=== PATIENT | female | born 1985 | race Caucasian/White ===

== ENCOUNTER → 2016-06-01 | Outpatient (CLI) | payer MEDICAID ==
--- NOTE | 2016-06-01 17:21 | DI ---
Indication: ITS.REASON: M54.16 RADICULOPATHY, lumbar, history of low back pain PROCEDURE: MRI LUMBAR SPINE W/O CONTRAST: Encounter: Initial Comparison: None Technique: Multiplanar multisequence MR imaging of the lumbar spine was performed without contrast. Findings: Alignment of the lumbar spine is within normal limits. No acute fracture or subluxation. Bone marrow signal intensity is normal. Conus medullaris terminates normally at L1. The paraspinal soft tissues are within normal limits. Segmental analysis: L1-L2: Normal L2-L3: Normal L3-L4: Disk desiccation with bulging and a small high intensity zone centrally results in mild central canal narrowing and slight effacement of the thecal sac. Mild degenerative facet change contributes to mild left neural foraminal narrowing. No significant right foraminal stenosis. L4-L5: Normal L5-S1: Normal Impression: Annular disk tear at L3-L4 with bulging, mild central canal and left neural foraminal narrowing. .
--- NOTE | 2016-06-01 17:24 | DI ---
Indication: ITS.REASON: M54.12 RADICULOPATHY, CERVICAL REGION; neck pain with painful range of motion PROCEDURE: MRI CERVICAL SPINE W/O CONTRAS: Encounter: Initial Comparison: None Technique: Multiplanar multisequence MR imaging of the cervical spine was performed without contrast. Findings: Alignment of the cervical spine is within normal limits. Vertebral body heights are maintained. Bone marrow signal intensity is normal. No acute fracture. The cervical and visualized upper thoracic spinal cord signal intensity is normal. Paraspinal soft tissues are unremarkable. Segmental analysis: C2-C3: Normal C3-C4: Normal C4-C5: Normal C5-C6: Normal C6-C7: Left central disk protrusion effacing the left aspect of the thecal sac without true central canal stenosis. This also results in moderate left neural foraminal stenosis. No right foraminal narrowing. C7-T1: Normal Impression: Left-sided disk protrusion at C6-C7. .
== END ==
LOC: IMA 08:59
PROVIDERS: ATTEND Family Medicine
DX: M50.122 Cervical disc disorder at C5-C6 level with radiculopathy (principal); M47.26 Other spondylosis with radiculopathy, lumbar region; M51.16 Intervertebral disc disorders with radiculopathy, lumbar region

== ENCOUNTER 2016-07-08 12:41 | Emergency (ER) | payer MEDICAID ==
[~2016-07-08] VITALS: Ht 170.2 cm; Wt 76.0 kg
[2016-07-08 12:45] VITALS: Ht 170.2 cm; Wt 76.0 kg
--- OUTSIDE RECORDS SUMMARY | 2016-07-08 12:46 | XMS REPORT ---
Author Author Katheirne Rinaldi Organization e[employer] Address Unknown Phone Unavailable Care Team Providers Care Deck Mechanic Name Role Phone Katherine Rinaldi CP Unavailable Allergies No Known Allergies Problems Problem Type Condition Code Onset Dates Condition Status Problem Other muscle spasm M62.838 Active Problem Unspecified tachycardia 785.0 Active Problem Low back pain M54.5 Active Assessment Low back pain M54.5 Active Assessment Other muscle spasm M62.838 Active Medications No Known Medications Results No Known Results Summary Purpose eClinicalWorks Submission
--- OUTSIDE RECORDS SUMMARY | 2016-07-08 12:46 | XMS REPORT | Referral Summary ---
Author Author [facility] Organization [facility] Address Unknown Phone Unavailable Care Team Providers Care Peoplesoft Taleo Manager Name Role Phone [facility] Primary Care Physician Unavailable Encounter [facility] [id number] Date(s): 10/17/15 - 10/17/15 [facility] [address], [place] [address] Discharge Diagnosis: Lumbar disc herniation Discharge Diagnosis: Lumbar radiculopathy Discharge Diagnosis: Lumbar spinal stenosis Discharge Disposition: 01-Home or Self Care Attending Physician: Aries Gao MD Admitting Physician: Aries Gao MD Referring Physician: [facility] Vital Signs Most recent to 1 oldest [Reference Range]: Apical Heart Rate 56 bpm [60-100 bpm] *LOW* (10/17/15 9:51 AM) Respiratory Rate 16 br/min [14-20 br/min] (10/17/15 9:51 AM) Blood Pressure 114/71 mmHg [90-140/60-90 mmHg] (10/17/15 9:51 AM) SpO2 100 % (10/17/15 9:51 AM) Problem List Condition Effective Dates Status Health Status Informant Disc degeneration, Active lumbar(Confirmed) Lumbar Active radiculopathy(Confir med) Lumbar disc Active herniation(Confirmed ) Lumbar spinal Active stenosis(Confirmed) Allergies, Adverse Reactions, Alerts No Known Medication Allergies Medications baclofen 10 mg oral tablet 10 mg 1 tabs, Oral, TID, 0 Refill(s) Start Date: 02/16/15 Status: Ordered meloxicam 15 mg oral tablet 15 mg 1 tabs, Oral, Daily, 0 Refill(s) Start Date: 02/16/15 Status: Ordered Results No data available for this section Immunizations No data available for this section Procedures Procedure Date Related Diagnosis Body Site Injection(s), anesthetic agent and/or 10/17/15 steroid, transforaminal epidural, with imaging guidance (fluoroscopy or CT); lumbar or sacral, single level Bilateral L3-4 Transforaminal 06/09/15 Bilateral L3-4 Transforaminal 03/03/15 Left Ankle Surgery-Screw placed 1998 Social History No data available for this section Assessment and Plan Extracted from: Title: Ambulatory Patient Education Author: Pamella Chow RN Date: 10/17/15 Procedures Epidural Steroid Injection An epidural steroid injection is given to relieve pain in your neck, back, or legs that is caused by the irritation or swelling of a nerve root. This procedure involves injecting a steroid and numbing medicine (anesthetic) into the epidural space. The epidural space is the space between the outer covering of your spinal cord and the bones that form your backbone (vertebra). LET YOUR HEALTH CARE PROVIDER KNOW ABOUT: Any allergies you have. All medicines you are taking, including vitamins, herbs, eye drops, creams, and yhgr-ijf-izgmurj medicines such as aspirin. Previous problems you or members of your family have had with the use of anesthetics. Any blood disorders or blood clotting disorders you have. Previous surgeries you have had. Medical conditions you have. RISKS AND COMPLICATIONS Generally, this is a safe procedure. However, as with any procedure, complications can occur. Possible complications of epidural steroid injection include: Headache. Bleeding. Infection. Allergic reaction to the medicines. Damage to your nerves. The response to this procedure depends on the underlying cause of the pain and its duration. People who have long-term (chronic) pain are less likely to benefit from epidural steroids than are those people whose pain comes on strong and suddenly. BEFORE THE PROCEDURE Ask your health care provider about changing or stopping your regular medicines. You may be advised to stop taking blood-thinning medicines a few days before the procedure. You may be given medicines to reduce anxiety. Arrange for someone to take you home after the procedure. PROCEDURE You will remain awake during the procedure. You may receive medicine to make you relaxed. You will be asked to lie on your stomach. The injection site will be cleaned. The injection site will be numbed with a medicine (local anesthetic). A needle will be injected through your skin into the epidural space. Your health care provider will use an X-ray machine to ensure that the steroid is delivered closest to the affected nerve. You may have minimal discomfort at this time. Once the needle is in the right position, the local anesthetic and the steroid will be injected into the epidural space. The needle will then be removed and a bandage will be applied to the injection site. AFTER THE PROCEDURE You may be monitored for a short time before you go home. You may feel weakness or numbness in your arm or leg, which disappears within hours. You may be allowed to eat, drink, and take your regular medicine. You may have soreness at the site of the injection. This information is not intended to replace advice given to you by your health care provider. Make sure you discuss any questions you have with your health care provider. Document Released: 06/10/2008 Document Revised: 11/04/2013 Document Reviewed: Exit[employer] Patient Information 2016 [employer], [email or web address]. No follow up information was provided.
--- OUTSIDE RECORDS SUMMARY | 2016-07-08 12:46 | XMS REPORT | Referral Summary ---
Author Author [facility] Organization [facility] Address Unknown Phone Unavailable Care Team Providers Care Center Lead Consultant Name Role Phone [facility] Primary Care Physician Unavailable Encounter [facility] [id number] Date(s): 02/16/15 - 02/16/15 [facility] [address], [place] [address] Discharge Diagnosis: Disc degeneration, lumbar Discharge Diagnosis: Lumbar spinal stenosis Discharge Diagnosis: Lumbar radiculopathy Discharge Diagnosis: Lumbar disc herniation Discharge Disposition: 01-Home or Self Care Attending Physician: Valentino Hubbard Admitting Physician: Valentino Hubbard Referring Physician: [facility] Vital Signs Most recent to 1 oldest [Reference Range]: Blood Pressure 114/72 mmHg [90-140/60-90 mmHg] (02/16/15 1:57 PM) Problem List Condition Effective Dates Status Health [...] Procedures Procedure Date Related Diagnosis Body Site Left Ankle Surgery-Screw placed 1998 Social History No data available for this section Assessment and Plan Extracted from: Title: Office Visit Note Author: Valentino Hubbard Date: 02/16/15 Assessment/Plan Disc degeneration, lumbar Lumbar disc herniation Lumbar radiculopathy Lumbar spinal stenosis I discussed the patient's plan of care with Dr. Gao. I also reviewed the patient's most recent lumbar MRI with the patient using a spinal model. I've also reviewed the films with the patient. Dr. Gao also reviewed this MRI. According to this MRI the patient has findings of advanced degenerative disc at the L3 4 levelwith a mild degree of central stenosis with some mild bilateral L3 foraminal stenosis. There is also small foraminal component of a disc herniation on the left with an annular tear. Clinically she appears to have discogenic pain lumbar radiculopathy from the L3 4 level bilaterally left greater than right. She has attended fairly extensive physical therapy. She' s been on anti-inflammatories muscle relaxers. Dr. Gao recommends proceeding witha bilateral L3 4 transforaminal epidural steroid injection. The patient does understand the rationale for the procedure as well as possible complications including bleeding, infection, allergic reaction, nerve irritation or damage, and risk of spinal headache. The patient also understands other remote possible complications including paraplegia, quadriplegia, , stroke, embolus,and seizure. The patient voiced understanding and wishes to proceed.The patient requests a local anesthetic. The patient will follow-up in 2 months following the injection. If the patient fails to improve or worsening symptoms, shewill follow-up sooner. We discussed surgery is generally last resort. She has no myelopathic signs today. She'll continue home exercise and stretching. Activity modification was also discussed with her. The patient voiced understanding and agrees to the above plan. Physical exam findings, history present illness, and recommendations are performed with and in agreement with Dr. Gao's findings.
--- OUTSIDE RECORDS SUMMARY | 2016-07-08 12:46 | XMS REPORT | Referral Summary ---
Author Author [facility] Organization [facility] Address Unknown Phone Unavailable Care Team Providers Care Rod Drawer Name Role Phone [facility] Primary Care Physician Unavailable Encounter [facility] [id number] Date(s): 06/09/15 - 06/09/15 [facility] [address], [place] [address] Discharge Diagnosis: Lumbar spinal stenosis Discharge Diagnosis: Lumbar disc herniation Discharge Diagnosis: Lumbar radiculopathy Discharge Disposition: 01-Home or Self Care Attending Physician: Aries Gao MD Admitting Physician: Aries Gao MD Referring Physician: [facility] Vital Signs Most recent to 1 oldest [Reference Range]: Peripheral Pulse 69 bpm Rate [60-100 bpm] (06/09/15 1:48 PM) Respiratory Rate 12 br/min [14-20 br/min] *LOW* (06/09/15 1:48 PM) Blood Pressure 126/83 mmHg [90-140/60-90 mmHg] (06/09/15 1:48 PM) SpO2 100 % (06/09/15 1:48 PM) Problem List Condition Effective Dates Status [...] Procedures Procedure Date Related Diagnosis Body Site Bilateral L3-4 Transforaminal 06/09/15 Injection(s), anesthetic agent and/or 06/09/15 steroid, transforaminal epidural, with imaging guidance (fluoroscopy or CT); lumbar or sacral, single level Bilateral L3-4 Transforaminal 03/03/15 Left Ankle Surgery-Screw placed 1998 Social History No data available for this section Assessment and Plan No data available for this section
--- OUTSIDE RECORDS SUMMARY | 2016-07-08 12:46 | XMS REPORT ---
Author Author Katherine Rinaldi Organization [employer]ClinicalWorks Address Unknown Phone Unavailable Care Team Providers Care Photographic Editor Name Role Phone Katherine Rinaldi CP Unavailable Allergies No Known Allergies Problems Problem Type Condition Code Onset Dates Condition Status Problem Other muscle spasm M62.838 Active Problem Unspecified tachycardia 785.0 Active Problem Low back pain M54.5 Active Assessment Other muscle spasm M62.838 Active Medications Medication Code System Code Instructions Start Date End Date Status Dosage Electrotherapy Pain Relief [facility] [id number] Please provide replacement patches (electrodes, tac gel, lead wires) for TENS unit. Thank you! Jan 17, 2015 as directed Results No Known Results Summary Purpose eClinicalWorks Submission
--- OUTSIDE RECORDS SUMMARY | 2016-07-08 12:46 | XMS REPORT ---
Author Author Katherine Rinaldi Organization [employer] Address Unknown Phone Unavailable Care Team Providers Care Carpenter Packing Name Role Phone Katherine Rinaldi CP Unavailable Allergies No Known Allergies Problems Problem Type Condition Code Onset Dates Condition Status Problem Other specified irregular menstruation N92.5 Active Problem Low back pain M54.5 Active Problem Personal history of urinary (tract) infections Z87.440 Active Assessment Other specified abnormal findings of blood chemistry R79.89 Active Problem Other muscle spasm M62.838 Active Problem Unspecified tachycardia 785.0 Active Medications No Known Medications Results No Known Results Summary Purpose eClinicalWorks Submission
--- OUTSIDE RECORDS SUMMARY | 2016-07-08 12:46 | XMS REPORT ---
Author Author Katherine Rinaldi Organization [employer] Address Unknown Phone Unavailable Care Team Providers Care Varnish Dipper Name Role Phone Katherine Rinaldi CP Unavailable Allergies, Adverse Reactions, Alerts Substance Reaction Event Type N.K.D.A. Info Not Available Non Drug Allergy Problems Problem Type Condition Code Onset Dates Condition Status Problem Unspecified tachycardia 785.0 Active Assessment Unspecified site of sprain and strain 848.9 Active Problem Unspecified site of sprain and strain 848.9 Active Medications Medication Code System Code Instructions Start Date End Date Status Dosage Meloxicam [facility] [address]-31 15 MG Orally Once a day as needed for pain August 03, 2014 October 02, 2014 1 tablet Cyclobenzaprine HCl [facility] [address]-50 10 MG Orally Three times a day as needed for muscle spasms August 03, 2014 October 02, 2014 1 tablet Procedures Procedure Coding System Code Date Office Visit, Est Pt., Level 3 CPT-4 19308 August 03, 2014 Vital Signs Date/Time: August 03, 2014 BMI 26.37 Index Weight 178.6 lbs Height 69 in Blood Pressure Diastolic 85 mm Hg Blood Pressure Systolic 125 mm Hg Temperature 98 F Cardiac Monitoring Heart Rate 63 /min Results No Known Results Summary Purpose eClinicalWorks Submission
--- OUTSIDE RECORDS SUMMARY | 2016-07-08 12:46 | XMS REPORT ---
Author Author Katherine Rinaldi Organization [employer] Address Unknown Phone Unavailable Care Team Providers Care Slot Floor Supervisor Name Role Phone Katherine Rinaldi CP Unavailable Allergies No Known Allergies Problems Problem Type Condition ICD-9 Code Onset Dates Condition Status Problem Unspecified tachycardia 785.0 Active Medications No Known Medications Results No Known Results Summary Purpose eClinicalWorks Submission
--- OUTSIDE RECORDS SUMMARY | 2016-07-08 12:46 | XMS REPORT | Referral Summary ---
Author Author [facility] Organization [facility] Address Unknown Phone Unavailable Care Team Providers Care Varnish Dipper Name Role Phone [facility] Primary Care Physician Unavailable Encounter [facility] [id number] Date(s): 05/05/15 - 05/05/15 [facility] [address], [place] [address] Discharge Diagnosis: Lumbar spinal stenosis Discharge Diagnosis: Lumbar radiculopathy Discharge Diagnosis: Lumbar disc herniation Discharge Diagnosis: Disc degeneration, lumbar Discharge Disposition: 01-Home or Self Care Attending Physician: Valentino Hubbard Admitting Physician: Valentino Hubbard Referring Physician: [facility] Vital Signs Most recent to 1 oldest [Reference Range]: Temperature Oral 36.8 degC [35.8-37.3 degC] (05/05/15 2:20 PM) Blood Pressure 116/76 mmHg [90-140/60-90 mmHg] (05/05/15 2:20 PM) Problem List Condition Effective Dates Status [...] Related Diagnosis Body Site Bilateral L3-4 Transforaminal 03/03/15 Left Ankle Surgery-Screw placed 1998 Social History No data available for this section Assessment and Plan Extracted from: Title: Office Visit Note Author: Valentino Hubbard Date: 05/05/15 Assessment/Plan Disc degeneration, lumbar Lumbar disc herniation Lumbar radiculopathy Lumbar spinal stenosis I discussed this patient's care with Dr. Gao. I did review her previous and lumbar spine MRIwith findings of advanced degenerative disc at L3 4 with mild degree of central stenosis and mild bilateral L3 foraminal stenosis. There is also small foraminal component of disc herniation the left with an annular tear. Clinically she appears have discogenic pain lumbar radiculopathy left greater than right. She has attended extensive physical therapy continues home exercises and stretches. She has been on anti-inflammatories and muscle relaxers. She has had75 percent improvement for the first month and then 50 percent improvement from the second monthfollowing herlast bilateral L3 4 transforaminal epidural. She has had somepersisting symptoms and would like to consider a second injection. Dr. Gao recommend scheduling to repeat her bilateral L3 4 transforaminal epidural after 06/02/2015 so it would be about 3 months from her last one. She does understand the rationale for the procedure possible complications including bleeding infection allergic reaction medication nerve irritation or damage risk of spinal headache. She understands other remote possible complications including paraplegia quadriplegia strokeembolus. She voiced understanding wishes to proceed. She requests a local. She does not want to consider any surgical alternatives. She will continue her home exercises and stretches. She will follow-up here in 3 months following her injection assuming she improves. She'll follow-up sooner if needed. She voiced understanding and agrees to theabove plans. The above was in discussion with Dr. Gao.
--- OUTSIDE RECORDS SUMMARY | 2016-07-08 12:46 | XMS REPORT | Referral Summary ---
Author Author [facility] Organization [facility] Address Unknown Phone Unavailable Care Team Providers Care Log Sorter Name Role Phone [facility] Primary Care Physician Unavailable Encounter [facility] [id number] Date(s): 03/03/15 - 03/03/15 [facility] [address] [place], [place] [address] Discharge Diagnosis: Lumbar radiculopathy Discharge Diagnosis: Lumbar disc herniation Discharge Diagnosis: Lumbar spinal stenosis Discharge Disposition: 01-Home or Self Care Attending Physician: Aries Gao MD Admitting Physician: Aries Gao MD Referring Physician: [facility] Vital Signs Most recent to 1 oldest [Reference Range]: Peripheral Pulse 71 bpm Rate [60-100 bpm] (03/03/15 2:21 PM) Respiratory Rate 18 br/min [14-20 br/min] (03/03/15 2:21 PM) Blood Pressure 109/79 mmHg [90-140/60-90 mmHg] (03/03/15 2:21 PM) SpO2 100 % (03/03/15 2:21 PM) Problem List Condition Effective Dates Status [...] Diagnosis Body Site Bilateral L3-4 Transforaminal 03/03/15 Injection(s), anesthetic agent and/or 03/03/15 steroid, transforaminal epidural, with imaging guidance (fluoroscopy or CT); lumbar or sacral, single level Left Ankle Surgery-Screw placed 1998 Social History No data available for this section Assessment and Plan No data available for this section
--- OUTSIDE RECORDS SUMMARY | 2016-07-08 12:46 | XMS REPORT ---
Author Author Katherine Rinaldi Organization eClinicalWorks Address Unknown Phone Unavailable Care Team Providers Care Manager Interface Name Role Phone Katherine Rinaldi CP Unavailable Allergies No Known Allergies Problems Problem Type Condition ICD-9 Code Onset Dates Condition Status Problem Unspecified site of sprain and strain 848.9 Active Problem Unspecified tachycardia 785.0 Active Problem Spasm of muscle 728.85 Active Medications No Known Medications Results No Known Results Summary Purpose eClinicalWorks Submission
--- OUTSIDE RECORDS SUMMARY | 2016-07-08 12:46 | XMS REPORT ---
Author Author Katherine Rinaldi Organization eClinicalWorks Address Unknown Phone Unavailable Care Team Providers Care Microsoft Dynamics Consultant Name Role Phone Katherine Rinaldi CP Unavailable Allergies, Adverse Reactions, Alerts Substance Reaction Event Type N.K.D.A. Info Not Available Non Drug Allergy Problems Problem Type Condition ICD-9 Code Onset Dates Condition Status Assessment Unspecified tachycardia 785.0 Active Problem Unspecified tachycardia 785.0 Active Medications No Known Medications Procedures Procedure Coding System Code Date COMPREHEN METABOLIC PANEL CPT-4 35900 Dec 28, 2013 ASSAY THYROID STIM HORMONE CPT-4 45943 Dec 28, 2013 COMPLETE CBC W/AUTO DIFF WBC CPT-4 02707 Dec 28, 2013 -ELECTROCARDIOGRAM, COMPLETE CPT-4 34937 Dec 28, 2013 Office Visit, New Pt., Level 3 CPT-4 15413 Dec 28, 2013 Vital Signs Date/Time: Dec 28, 2013 BMI 29.38 Index Weight 199 lbs Height 69 in Blood Pressure Diastolic 90 mm Hg Blood Pressure Systolic 135 mm Hg Temperature 98.1 F Cardiac Monitoring Heart Rate 98 /min Results Name Result Date Reference Range Unit COMPREHENSIVE METABOLIC PANEL Summary Purpose eClinicalWorks Submission
--- OUTSIDE RECORDS SUMMARY | 2016-07-08 12:46 | XMS REPORT ---
Author Author Katherine Rinaldi Organization eClinical[employer] Address Unknown Phone Unavailable Care Team Providers Care Integration Developer Name Role Phone Katherine Rinaldi Unavailable Allergies, Adverse Reactions, Alerts Substance Reaction [...] Start Date End Date Status Dosage Meloxicam [facility] [address]-57 15 MG Orally Once a day 1 tablet Baclofen [facility] [address]-59 10 MG Dec 16, 2014 Mar 16, 2015 0.5 tablet po TID x 3 days, then increase to 1 tab po TID; take with food or milk Procedures Procedure Coding System Code Date Office Visit, Est Pt., Level 3 CPT-4 45683 Jan 05, 2015 Vital Signs Date/Time: Jan 05, 2015 BMI 24.29 Index Weight 164.5 lbs Height 69 in Blood Pressure Diastolic 85 mm Hg Blood Pressure Systolic 130 mm Hg Temperature 97.9 F Cardiac Monitoring Heart Rate 85 /min Results No Known Results Summary Purpose eClinicalWorks Submission
[2016-07-08] MEDS ORDERED: BACL10TA PO (12:53)
[2016-07-08] MEDS ORDERED: MELO-267 PO (12:53)
--- NOTE | 2016-07-08 13:07 | ERPDOC ---
Departure Disposition Decision Date: Jul 08, 2016 Disposition Decision Time: 13:53 Disposition: 01 DISCHARGED HOME, SELF-CARE Impression Impression Impression: Primary Impression: Allergic reaction Encounter type: initial encounter Qualified Codes: T78.40XA - Allergy, unspecified, initial encounter Severity: Mild Condition: Improved Seen By: Physician only Referrals: FELICITY DOUGLAS DO (PCP) 2 Days Patient Instructions: General Allergic Reaction (ED) Problems/Meds/Labs Reviewed?: Yes Medications reviewed and manag: Yes Follow up care ordered?: Yes Mental Status: Alert, Oriented Scripts Prednisone (Prednisone) 20 Mg Tablet 40 MG PO DAILY for 5 Days, #10 TAB 0 Refills Take daily each morning Prov: NO SANTIAGO DO 07/08/16 Famotidine (Pepcid) 20 Mg Tablet 1 TAB PO BID for 10 Days, #20 TAB 0 Refills Prov: NO SANTIAGO DO 07/08/16 HPI - General Medical General Chief Complaint: Allergic Reaction Stated Complaint: ALLERGIC REACTION, HIVES,ITCHING, FACIAL SWELLING Time Seen by Provider: 12:49 Source: patient Exam Limitations: no limitations HPI - General Medical Initial Comments 30-year-old female presents to the emergency department with a chief complaint of an ALLERGIC reaction. Patient has just finished a prescription of penicillin and noted onset of hives on Saturday morning. Patient notes generalized itching. Patient has generalized lesions consistent with hives. Symptoms are mild in nature. No radiation. She does not note any exacerbating or remitting factors. She was at home when her symptoms began. Symptoms have been persistent in nature in a gradual manner since onset. She denies any other complaints or associated symptoms. She is not having any trouble speaking or talking. There is no intraoral involvement. She denies exposure to any other new allergens. Occurred At: home Onset: Gradual Allergies: Coded Allergies: Sulfa (Sulfonamide Antibiotics) (Verified Allergy, Severe, HIVES, 07/08/16) Past History Past Medical History Pt denies signifigant [facility] Surgical History Denies Surgeries Family History Family History: Negative Social History Smoking Status: Never smoker Substance Use Type: does not use Alcohol Intake: none Review of Systems Constitutional Constitutional: DENIES: chills, fever Eyes General: DENIES: erythema, exudate Lids/Accessories: DENIES: erythema, swelling Vision: DENIES: acuity, blurring ENMT Ears: DENIES: drainage, erythema Hearing: DENIES: hearing loss Balance: DENIES: ataxia, falling to one side Sinuses: DENIES: congestion, pain Nose: DENIES: nosebleeds, pain Mouth/Throat: DENIES: painful swallowing, sore throat Teeth: DENIES: pain Jaw: DENIES: pain Cardiovascular Cardiac: DENIES: chest pain, dyspnea on exertion Rhythm/Rate: DENIES: irregular beat, palpitations Vascular: DENIES: pedal edema, unilateral swelling Pulmonary Respiratory: DENIES: cough, dyspnea, pleuritic chest pain, sputum GI Upper Abdomen: DENIES: nausea, pain, vomiting Lower Abdomen: DENIES: diarrhea, pain General: DENIES: dysuria, frequency Musculoskeletal General: DENIES: joint pain, pain, tenderness Integumentary Skin: DENIES: itching, rash Neurological General: DENIES: headache, numbness, weakness Psychiatric Psychiatric: DENIES: emotional instability, suicidal ideation/attempt Endocrine Endocrine: DENIES: polydipsia, polyphagia Hematologic/Lymphatic Hematologic/Lymphatic: DENIES: frequent nosebleeds, lymphadenopathy Allergic/Immunological Allergic/Immunoligical: DENIES: allergic reactions, hives Physical Exam General General Nourishment: well nourished, well developed, appears stated age, no acute distress, adult General Body Habitus: well groomed Vitals and Pain First Documented Vital Signs Date Time Temp Pulse Resp B/P Pulse Ox O2 Delivery O2 Flow Rate FiO2 07/08/16 12:45 98.6 90 16 134/71 100 Room Air Weight: Kilograms: 76.000 Height (feet): 5 Height (inches): 7.00 Triage Pain Scale: RN VS reviewed by Provider: Yes Normal Exams: Head: Normocephalic w/o trauma Eyes: Pupils are PERRLA w/ EOMI, No scleral icterus, irritation, or foreign bodies noted ENMT: No facial trauma, nasal exudates, pharyngeal erythema, or exudates are noted Dental: No fractured, loose, or missing teeth noted Neck: Full range of motion, without adenopathy, JVD, bruits or thyromegaly Chest/Resp: Clear all freire, with good airflow, and symmetry bilaterally CV: Regular rate and rhythm, without murmur or gallop, Pulses 2+ all extremities, capillary refill, <2 seconds all ext., no pedal edema noted Abdomen: Bowel sounds positive, soft, non-tender, non-distended, no hepatosplenomegaly, masses or bruits noted Lymphatic: No lymphadenopathy, or lymphedema noted Musculoskeletal: No tenderness, or deformity noted, good range of motion, all extremities Integumentary: No rashes, or bruising noted, hair and nails, without abnormality Neurologic: Patient is alert, and oriented, cranial nerves, motor/sensory/ cerebellar, exams w/o gross deficits, to observation Psychiatric: Patient exhibits, appropriate attention, emotion and affect ENMT (brief) Comments Oral - no sign of intraoral involvement. Integumentary (brief) Comments Occasional scattered generalized urticarial lesion consistent with hives. Lesion blanches with pressure. No sign of secondary infection. Differential Diagnoses Considering: Medication Effect, Other (Allergic Reaction/HIVES/Drug Rash) Progress Results/Orders Orders Procedure Category Date Status Time Iv Lock (Ed Only) EDM 07/08/16 Transmitted 13:11 Normal Saline (Normal PHA 07/08/16 Complete Saline Iv) 13:15 Methylprednisolone PHA 07/08/16 Complete Sod Succ (Solu-Medrol 13:15 Famotidine (Pepcid 20 PHA 07/08/16 Complete Mg Inj.) 13:15 Diphenhydramine PHA 07/08/16 Complete (Benadryl) 13:15 Medications Current ED Medications Sodium Chloride (Normal Saline IV) 1,000 ml @ 999 mls/hr Q1H1M ONCE IV Last administered on 07/08/16 13:36; Start 07/08/16 at 13:15; Stop 07/08/16 at 14:15 ; Status DC Methylprednisolone Sodium Succinate 125 mg 125 mg O ONCE IV Last administered on 07/08/16 13:37; Start 07/08/16 at 13:15; Stop 07/08/16 at 13:16; Status DC Famotidine/Sodium Chloride (PEPCID 20 mg INJ./NS) 52 ml @ 100 mls/hr O ONCE IV Last administered on 07/08/16 14:09; Start 07/08/16 at 13:15; Stop at 13:46; Status DC Diphenhydramine HCl (Benadryl) 50 mg O ONCE IV Last administered on 07/08/16 13:40; Start 07/08/16 at 13:15; Stop 07/08/16 at 13:16; Status DC Progress Progress Patient is given IV hydration. She is given solu-medrol 125 mg IV times one. She is given Pepcid 20 mg IV times one. She is given Benadryl 50 mg IV times one. Patient's rash has improved markedly. She is discharged home in improved condition. She is to follow up as instructed. She is to return to the emergency Department if her condition worsens or changes in any manner. Patient is instructed to use Benadryl 25 mg by mouth every 6 hours for the next 24 hours. She is given a prescription for prednisone 40 mg by mouth daily 5 days. She is provided with Pepcid 20 mg by mouth twice a day 10 days. Patient is in agreement with the current plan of management. She was monitored in the emergency department for a safe period of time. NO SANTIAGO DO Jul 08, 2016 13:07
--- NOTE | 2016-07-08 13:10 | NUR ---
DR SANTIAGO IN
[2016-07-08] MEDS ORDERED: NORMAL SALINE 1,000 ML IV ONE (13:15)
[2016-07-08] MEDS ORDERED: FAMOTIDINE 20 MG in NORMAL SALINE 50 ML IV ONE (13:15)
[2016-07-08] MEDS ORDERED: DiphenhydrAMINE 50 MG/ML INJECTION IV ONE (13:15)
[2016-07-08] MEDS ORDERED: PRED20TA PO (13:54)
[2016-07-08] MEDS ORDERED: FAMO-137 PO (13:54)
[2016-07-08 14:41] VITALS: BP 127/71; PULSE 62; RESP 16; TEMP 98.1; O2SAT 100
--- NOTE | 2016-07-08 14:41 | NUR ---
DISMISSSAL INSTRUCTIONS REVIEWED. PT IS FEELING MUCH BETTER. REDNESS OF FACE HAS DISAPPEARED
== END 2016-07-08 14:41 | disposition home or self-care (01) ==
LOC: ED 12:41
DX: L50.0 Allergic urticaria (principal); T36.0X5A Adverse effect of penicillins, initial encounter; Y92.009 Unspecified place in unspecified non-institutional (private) residence as the place of occurrence of the external cause
CPT/HCPCS: 96361; 96365; 96375; 99284; J1200; J2930; J7030; J7050; S0028